=== PATIENT | male | born 1980 | race African-American/Black ===

== ENCOUNTER 2024-02-14 23:31 | Emergency (ER) | payer OTHER ==
[2024-02-14 23:38] VITALS: BP 116/77; PULSE 103; RESP 19; TEMP 98.4; BMI 24.0
[2024-02-14] MEDS ORDERED: ALBUTEROL SO4 2.5/IPRATROPIUM 0.5 INH SOL 3 ML VIAL.NEB. NEB ONE (23:47)
[2024-02-14] MEDS: ALBUTEROL SO4 2.5/IPRATROPIUM 0.5 INH SOL 3 ML VIAL.NEB. NEB ONE (23:51)
[2024-02-15] MEDS ORDERED: predniSONE 20 MG TABLET (UD) ONE (00:30)
[2024-02-15] MEDS: predniSONE 20 MG TABLET (UD) PO ONE (00:34)
[2024-02-15] MEDS: ALBUTEROL SO4 2.5/IPRATROPIUM 0.5 INH SOL 3 ML VIAL.NEB. NEB ONE (00:34)
== END 2024-02-15 01:34 | disposition home or self-care (01) ==
LOC: JER 23:31
PROC: 3E0F7GC Introduction of Other Therapeutic Substance into Respiratory Tract, Via Natural or Artificial Opening (ICD-10-PCS; principal; 2024-02-14)
PROC: 3E0F7GC Introduction of Other Therapeutic Substance into Respiratory Tract, Via Natural or Artificial Opening (ICD-10-PCS; 2024-02-14)
DX: J45.21 Mild intermittent asthma with (acute) exacerbation (principal); Z20.822 Contact with and (suspected) exposure to COVID-19
CPT/HCPCS: 0241U-QW; 71046-TC-FY; 99284-25